=== PATIENT | female | born 1930 | race Caucasian/White ===

== ENCOUNTER 2020-06-19 11:21 | Emergency (ER) | payer MEDICARE, BC ==
--- NOTE | 2020-06-19 12:09 | ER Document Report ---
ED General - General Stated Complaint: BACK PAIN Primary Care Provider: HORACIO STEWART MD [ACTIVE STAFF] - Follow up as needed (if persistent right flank pain) CLARK CHATTERJEE MD [ACTIVE STAFF] - Follow up as needed - HPI Notes: 89-year-old female with a history of hypertension presents to the emergency room today for evaluation of right-sided back pain that has occurred intermittently for the last year. Family was concerned that she may have a UTI or kidney infection. Last bowel movement was yesterday, no melena. Decreased p.o. intake over the last few weeks. Denies any new medications foods or travel. Denies fevers, chills, chest pain,palpitations, shortness of breath, dyspnea, nausea, vomiting, diarrhea, abdominal pain, hematuria,blurred vision, double vision, loss of vision, speech changes, LH, dizziness, syncope, headaches, wheezing, ST, URI, neck pain, weakness, bowel or bladder dysfunction, saddle anesthesia, numbness or tingling in bilateral upper or lower extremities equally, muscle paralysis, weakness in bilateral upper or lower extremities equally or rash. - Related Data Allergies/Adverse Reactions: No Known Allergies Allergy (Unverified 06/19/20 12:14) Past Medical History - General Information source: Patient, Relative - son - Social History Smoking Status: Unknown if Ever Smoked Family History: Reviewed & Not Pertinent Review of Systems - Review of Systems Constitutional: No symptoms reported EENT: No symptoms reported Cardiovascular: No symptoms reported Respiratory: No symptoms reported Gastrointestinal: See HPI Genitourinary: No symptoms reported Female Genitourinary: No symptoms reported Musculoskeletal: No symptoms reported Skin: No symptoms reported Hematologic/Lymphatic: No symptoms reported Neurological/Psychological: No symptoms reported Physical Exam - Vital signs Vitals: Temp 98.2 F 06/19/20 11:21 - Notes Notes: MEDICATIONS: I agree with the patient medications as charted by the RN. ALLERGIES: I agree with the allergies as charted by the RN. PAST MEDICAL HISTORY/PAST SURGICAL HISTORY: Reviewed and agree as charted by RN. SOCIAL HISTORY: Reviewed and agree as charted by RN. FAMILY HISTORY: No significant familial comorbid conditions directly related to patient complaint EXAM: Reviewed vital signs as charted by RN. PHYSICAL EXAMINATION: reviewed vital signs by RN GENERAL: Chronically ill malnourished and in no acute distress. HEAD: Atraumatic, normocephalic. EYES: Pupils equal round and reactive to light, extraocular movements intact, conjunctiva are normal. ENT: Nares patent, oropharynx clear without exudates. Moist mucous membranes. NECK: Normal range of motion, supple without lymphadenopathy LUNGS: Breath sounds clear to auscultation bilaterally and equal. No wheezes rales or rhonchi. HEART: Regular rate and rhythm without murmurs ABDOMEN: Soft, nontender, nondistended abdomen. No guarding, no rebound. No masses appreciated. slight right CVA tenderness on palpation, no left CVA tenderness appreciated Female : deferred Musculoskeletal: Normal range of motion, no pitting or edema. No cyanosis. NEUROLOGICAL: Cranial nerves grossly intact. Normal speech, normal gait. Normal sensory, motor exams PSYCH: Normal mood, normal affect. SKIN: Warm, Dry, normal turgor, no rashes or lesions noted. Course - Re-evaluation Re-evalutation: 06/19/20 17:13 Afebrile, hypertensive however patient did not receive her lisinopril or her Lopressor this morning, in no distress. Nurses notes reviewed. Patient did receive IV fluids via EMS. CBC negative for leukocytosis or anemia, CMP negative for hepatic or renal dysfunction, no electrolyte disturbances. Lipase normal. Urinalysis negative. CT abdomen pelvis with IV and oral contrast shows a distended urinary bladder correlate for urinary retention however patient's urinalysis was normal. Noted diverticulosis without acute evidence of diverticulitis. Large hiatal hernia. Patient resting comfortably in bed. Son at bedside. Discussed any concerns that he may have. He stated he just wanted to make sure she did not have a UTI or kidney infection which she does not. Advised that she does follow-up with her primary care provider within the next 24 to 48 hours for reevaluation. Her examination today clinically diagnostically and with her lab work was unremarkable. Patient and his son were agreeable with this plan of care and verbalized an understanding of this plan of care. After performing a Medical Screening Examination, I estimate there is LOW risk for ACUTE APPENDICITIS, BOWEL OBSTRUCTION, ACUTE CHOLECYSTITIS, PERFORATED DIVERTICULITIS, INCARCERATED HERNIA, PANCREATITIS, PELVIC INFLAMMATORY DISEASE, PERFORATED ULCER, ECTOPIC , or TUBO-OVARIAN ABSCESS, thus I consider the discharge disposition reasonable. Also, there is no evidence or peritonitis, sepsis, or toxicity. I have reevaluated this patient multiple times and no significant life threatening changes are noted. The patient and I have discussed the diagnosis and risks, and we agree with discharging home with close follow-up with the understanding that symptoms and presentations can change. We also discussed returning to the Emergency Department immediately if new or worsening symptoms occur. We have discussed the symptoms which are most concerning (e.g., bloody stool, fever, changing or worsening pain, vomiting) that necessitate immediate return. - Vital Signs Vital signs: Temp Pulse Resp BP Pulse Ox 97.8 F 55 L 20 165/99 H 97 06/19/20 15:27 06/19/20 15:27 06/19/20 15:27 06/19/20 16:45 06/19/20 15:27 - Laboratory Results Result Diagrams: 06/19/20 11:41 06/19/20 11:41 Laboratory Results Interpreted: 06/19/20 11:41 BUN 22 H Total Protein 5.5 L Albumin 3.0 L Critical Laboratory Results Reviewed: No Critical Results - Radiology Results Critical Radiology Results Reviewed: No Critical Results Discharge - Discharge Clinical Impression: Right flank pain, chronic Condition: Stable Disposition: HOME, SELF-CARE Additional Instructions: CT abdomen pelvis with IV and oral contrast was essentially negative today, she does have diverticulosis without acute diverticulitis. She does have a hiatal hernia that she does need to follow-up with gastroenterology for if needed. Her labs today were normal as well as her urine. She did receive some IV fluids. She did receive 5 mg of lisinopril while she was here, she can resume her normal medications at home. Please have her follow-up with her primary care provider within the next 24 to 48 hours. Return to the emergency room if she is experiencing any worsening symptoms, chest pain, shortness of breath, nausea, abdominal pain, fever. Return immediately for any new or worsening symptoms. Follow up with primary care provider, call tomorrow to make followup appointment. Referrals: CLARK CHATTERJEE MD [ACTIVE STAFF] - Follow up as needed HORACIO STEWART MD [ACTIVE STAFF] - Follow up as needed (if persistent right flank pain)
[2020-06-19] MEDS ORDERED: LISINOPRIL 5 MG TABLET PO ONE (12:35)
[2020-06-19 13:22] LABS: APPEARANCE,URINE CLEAR; BILIRUBIN,URINE NEGATIVE (NEGATIVE); COLOR,URINE YELLOW; GLUCOSE, URINE NEGATIVE (NEGATIVE); KETONES,URINE NEGATIVE (NEGATIVE); LEUKOCYTE ESTERASE,URINE NEGATIVE (NEGATIVE); NITRITE,URINE NEGATIVE (NEGATIVE); PROTEIN,URINE NEGATIVE (NEGATIVE); URINE SPECIFIC GRAVITY 1.014; UROBILINOGEN,URINE NEGATIVE mg/dL (<2.0)
[2020-06-19 14:07] LABS: ABSOLUTE EOSINOPHILS # (AUTO) 0.1 10^3/uL (0.0-0.6); ABSOLUTE MONOCYTES (AUTO) 0.4 10^3/uL (0.1-1.4); ABSOLUTE NEUT (AUTO) 3.8 10^3/uL (1.7-8.2); BASOPHILS % (AUTO) 0.7 % (0-2); EOSINOPHILS % (AUTO) 1.5 % (0-6); HEMATOCRIT 40.7 % (36.0-47.0); HEMOGLOBIN 13.7 g/dL (12.0-15.5); LYMPHOCYTES % (AUTO) 18.1 % (13-45); MEAN CORPUSCULAR HEMOGLOBIN 30.2 pg (27.0-33.4); MEAN CORPUSCULAR HGB CONC 33.6 g/dL (32.0-36.0); MEAN CORPUSCULAR VOLUME 90 fl (80-97); MONOCYTES % (AUTO) 8.2 % (3-13); PLATELET COUNT 158 10^3/uL (150-450); RED BLOOD COUNT 4.52 10^6/uL (3.72-5.28); RED CELL DISTRIBUTION WIDTH 13.7 % (11.5-14.0); SEGMENTED NEUTROPHILS % (AUTO) 71.5 % (42-78); TOTAL CELLS COUNTED % (AUTO) 100 %; WHITE BLOOD COUNT 5.3 10^3/uL (4.0-10.5)
[2020-06-19 14:16] LABS: ALKALINE PHOSPHATASE 48 U/L (38-126); ANION GAP 5 (5-19); ASPARTATE AMINO TRANSFERASE 20 U/L (14-36); BILIRUBIN,TOTAL 0.6 mg/dL (0.2-1.3); BLOOD UREA NITROGEN 22 mg/dL (7-20); CALCIUM 9.3 mg/dL (8.4-10.2); CARBON DIOXIDE 25 mmol/L (22-30); CHLORIDE 107 mmol/L (98-107); GLUCOSE 101 mg/dL (75-110); POTASSIUM 4.4 mmol/L (3.6-5.0); TOTAL PROTEIN 5.5 g/dL (6.3-8.2)
--- NOTE | 2020-06-19 16:43 | RADIOLOGY REPORT (SQ) ---
EXAM DESCRIPTION: CT ABD/PELVIS WITH IV ORAL IMAGES COMPLETED DATE/TIME: 06/19/2020 4:29 pm REASON FOR STUDY: lower abd pressure,R flank pain intermittently x1w COMPARISON: None. TECHNIQUE: CT scan of the abdomen and pelvis performed using helical scanning technique with dynamic intravenous contrast injection. No oral contrast. Images reviewed with lung, soft tissue, and bone windows. Reconstructed coronal and sagittal MPR images reviewed. Delayed images for evaluation of the urinary system also acquired. All images stored on PACS. All CT scanners at this facility use dose modulation, iterative reconstruction, and/or weight based d osing when appropriate to reduce radiation dose to as low as reasonably achievable (ALARA). [facility]: Dose Right [facility]: CareDose [facility]: Dose Right [facility]: Teradose 4D [facility]: [place] CONTRAST TYPE AND DOSE: contrast/concentration: Isovue 350.00 mmol/ml; Total Contrast Delivered: 76. 6 ml; Total Saline Delivered: 18.9 ml 76 mL Isovue 350- low osmolar. RENAL FUNCTION: BUN 22, creatinine 0.72 RADIATION DOSE: CT Rad equipment meets quality standard of care and radiation dose reduction techniq ues were employed. CTDIvol: NaN - NaN mGy. DLP: 0 mGy-cm.. LIMITATIONS: None. FINDINGS: LOWER CHEST: Large hiatal hernia. Cardiomegaly. No nodules or infiltrates. LIVER: Normal size. 1.3 cm fluid attenuating focus at the hepatic dome compatible with a cyst. No d ilated ducts. SPLEEN: Normal size. No focal lesions. PANCREAS: Atretic. GALLBLADDER: No identified stones by CT criteria. No inflammatory changes to suggest cholecystitis. ADRENAL GLANDS: Left adrenal gland thickening. RIGHT KIDNEY AND URETER: No solid masses. No significant calcifications. No hydronephrosis or hyd roureter. LEFT KIDNEY AND URETER: No solid masses. No significant calcifications. No hydronephrosis or hydr oureter. AORTA AND VESSELS: Heavy atherosclerotic disease. No aneurysm. No dissection. Renal arteries, SMA, c eliac without stenosis. RETROPERITONEUM: No retroperitoneal adenopathy, hemorrhage or masses. BOWEL AND PERITONEAL CAVITY: Moderate colonic diverticular disease without associated surrounding inf lammatory changes. APPENDIX: Normal. PELVIS: No mass. No free fluid. Distended urinary bladder. ABDOMINAL WALL: No masses. Very small fat containing umbilical hernia. . BONES: Dextroconvex scoliotic curvature of the lumbar spine. Thoracolumbar on bilateral hip degenera tive changes. OTHER: No other significant finding. IMPRESSION: Distended urinary bladder, correlate for urinary retention. Moderate colonic diverticulosis without evidence of acute diverticulitis. Large hiatal hernia. TECHNICAL DOCUMENTATION: JOB ID: [id number] Quality ID # [id number]: Final reports with documentation of one or more dose reduction techniques (e.g., Au tomated exposure control, adjustment of the mA and/or kV according to patient size, use of iterative reconstruction technique) 2010 [email or web address]- All Rights Reserved Reading location - IP/workstation name: [email or web address]
[2020-06-19 19:40] VITALS: BP 149/60
== END 2020-06-19 18:40 | disposition home or self-care (01) ==
LOC: ER 11:21
DX: R10.9 Unspecified abdominal pain (principal); G89.29 Other chronic pain; N32.89 Other specified disorders of bladder; K57.30 Diverticulosis of large intestine without perforation or abscess without bleeding; K44.9 Diaphragmatic hernia without obstruction or gangrene; M54.9 Dorsalgia, unspecified; I10 Essential (primary) hypertension; Z79.899 Other long term (current) drug therapy
CPT/HCPCS: 99285; 51701; 36415; 83690; 85025; 80053; 81001; 74177; A9270